=== PATIENT | female | born 1975 | race African-American/Black ===

== ENCOUNTER 2020-06-29 15:09 | Emergency (ER) | payer MEDICARE ==
[~2020-06-29] VITALS: Ht 152.4 cm; Wt 75.9 kg
[2020-06-29 15:15] VITALS: BP 146/95; TEMP 97.8
[2020-06-29] MEDS ORDERED: CRESTOR20 MG PO (15:29)
[2020-06-29] MEDS ORDERED: GLUCOPHAGE500 MG/TAB PO (15:29)
[2020-06-29] MEDS ORDERED: COZAAR100 MG PO (15:30)
[2020-06-29] MEDS ORDERED: AMITRIPTYLINE H10 M1 PO (15:30)
[2020-06-29 16:01] LABS: BASO % 0.6 % (0.0-2.0); EOS # 0.1 (0.0-0.7); EOS % 2.3 % (0-4.0); GRAN # 2.9 (1.4-6.5); GRAN % 54.8 % (42.2-75.2); HEMATOCRIT 40.8 % (37.0-47.0); HEMOGLOBIN 13.3 g/dl (12.5-16.0); LYMPH # 1.7 (1.2-3.4); LYMPH % 32.9 % (20.0-51.0); MEAN CELL VOLUME 87 fl (80.0-100.0); MEAN CORPUSCULAR HEMOGLOBIN 28 pg (27.0-31.0); MEAN CORPUSCULAR HGB CONC 33 g/dl (33.0-37.0); MEAN PLATELET VOLUME 9.6 fl (7.4-10.4); MONO # 0.5 (0.1-0.6); PLATELET COUNT 264 K/mm3 (130-400); REDCELL DISTRIBUTION WIDTH-CV 13.2 % (11.5-14.5)
[2020-06-29 16:05] LABS: ALANINE AMINOTRANSFERASE 76 U/L (4-34); ALBUMIN 4.6 gm/dL (3.5-5.0); ALKALINE PHOSPHATASE 60 U/L (50-136); ANION GAP 9 mmol/L (7-16); AST,SGOT 42 U/L (15-37); BILIRUBIN,TOTAL 0.5 mg/dL (0.0-1.0); BLOOD UREA NITROGEN 10 mg/dL (7-17); CALCIUM 9.5 mg/dL (8.4-10.2); CARBON DIOXIDE 27 mmol/L (22-30); CHLORIDE 103 mmol/L (98-107); CREATININE, serum 0.86 (0.52-1.25); GLUCOSE 115 mg/dL (74-106); POTASSIUM 3.9 mmol/L (3.4-5.0); SODIUM 139 mmol/L (137-145); TOTAL PROTEIN 7.9 gm/dL (6.4-8.2)
[2020-06-29 16:24] LABS: C-REACTIVE PROTEIN < 0.5 mg/dL (0.0-0.9)
[2020-06-29] MEDS ORDERED: NORCO 325 MG-51 TAB PO (16:36)
[2020-06-29 16:45] VITALS: PULSE 95
== END 2020-06-29 16:45 | disposition home or self-care (01) ==
LOC: COL.ER 15:09
PROVIDERS: Emergency Medicine
DX: M54.31 Sciatica, right side (principal); E11.9 Type 2 diabetes mellitus without complications; I10 Essential (primary) hypertension; E78.00 Pure hypercholesterolemia, unspecified; Z79.84 Long term (current) use of oral hypoglycemic drugs; Z87.891 Personal history of nicotine dependence; Z88.6 Allergy status to analgesic agent
CPT/HCPCS: J1885

== ENCOUNTER 2020-08-29 09:26 | Emergency (ER) | payer MEDICARE, MEDICAID ==
[~2020-08-29] VITALS: Ht 152.4 cm; Wt 77.3 kg
[~2020-08-29 09:26] MED LIST: AMITRIPTYLINE H10 M1 PO; COZAAR100 MG PO; CRESTOR20 MG PO; GLUCOPHAGE500 MG/TAB PO; NORCO 325 MG-51 TAB PO
[2020-08-29 09:31] VITALS: TEMP 97.7
[2020-08-29 09:53] LABS: COLLECTION METHOD CLEAN CATCH
[2020-08-29 10:04] LABS: MUCOUS Present /lpf; PH 5 (5-8); URINE APPEARANCE Cloudy; URINE BACTERIA None Seen /hpf; URINE BILIRUBIN Negative (NEGATIVE); URINE BLOOD 1+ (NEGATIVE); URINE COLOR Yellow; URINE GLUCOSE Negative (NEGATIVE); URINE KETONE Negative (NEGATIVE); URINE LEUKOCYTE ESTERASE 1+ (NEGATIVE); URINE NITRATE Negative (NEGATIVE); URINE PROTEIN(semi-quant) Negative (NEGATIVE); URINE RBC >50 /hpf; URINE UROBILINOGEN Negative (NEGATIVE)
[2020-08-29] MEDS ORDERED: OMNICEF 300MG300 MG PO (11:20)
[2020-08-29 11:29] VITALS: BP 134/92; PULSE 78
== END 2020-08-29 11:29 | disposition home or self-care (01) ==
LOC: COL.ER 09:26
PROVIDERS: Emergency Medicine
DX: R30.0 Dysuria (principal); L29.8 Other pruritus; Z32.02 Encounter for pregnancy test, result negative; Z88.5 Allergy status to narcotic agent; Z79.84 Long term (current) use of oral hypoglycemic drugs

== ENCOUNTER 2020-10-11 08:50 | Emergency (ER) | payer MEDICARE, MEDICAID ==
[~2020-10-11] VITALS: Ht 165.1 cm; Wt 76.8 kg
[~2020-10-11 08:50] MED LIST changes: +OMNICEF 300MG300 MG PO
[2020-10-11 08:56] VITALS: TEMP 97.7
[2020-10-11 09:10] LABS: COLLECTION METHOD CLEAN CATCH
[2020-10-11 09:19] LABS: MUCOUS Present /lpf; PH 5 (5-8); SQUAMOUS EPITHELIAL 20-50 /hpf; URINE APPEARANCE Cloudy; URINE BACTERIA None Seen /hpf; URINE BILIRUBIN Negative (NEGATIVE); URINE BLOOD 2+ (NEGATIVE); URINE COLOR Yellow; URINE GLUCOSE Negative (NEGATIVE); URINE KETONE Negative (NEGATIVE); URINE LEUKOCYTE ESTERASE Trace (NEGATIVE); URINE NITRATE Negative (NEGATIVE); URINE PROTEIN(semi-quant) Negative (NEGATIVE); URINE UROBILINOGEN Negative (NEGATIVE)
[2020-10-11] MEDS ORDERED: LIDODERM 5% PATC1 EA TP (09:38)
[2020-10-11 09:50] VITALS: BP 148/98; PULSE 94
== END 2020-10-11 10:00 | disposition home or self-care (01) ==
LOC: COL.ER 08:50
PROVIDERS: Emergency Medicine
DX: M54.5 Low back pain (principal); Z87.891 Personal history of nicotine dependence; Z32.02 Encounter for pregnancy test, result negative; Z88.5 Allergy status to narcotic agent; Z79.84 Long term (current) use of oral hypoglycemic drugs

== ENCOUNTER 2020-11-18 12:03 | Emergency (ER) | payer MEDICARE, MEDICAID ==
[~2020-11-18] VITALS: Ht 152.4 cm; Wt 79.1 kg
[~2020-11-18 12:03] MED LIST changes: +LIDODERM 5% PATC1 EA TP
[2020-11-18 12:16] VITALS: TEMP 98.4
[2020-11-18 12:45] LABS: COLLECTION METHOD CLEAN CATCH
[2020-11-18] MEDS ORDERED: LIDODERM 5% PATC1 EA TP (12:53)
[2020-11-18] MEDS ORDERED: FLEXERIL5 MG PO (12:54)
[2020-11-18 12:57] LABS: MUCOUS Present /lpf; PH 6 (5-8); URINE APPEARANCE Hazy; URINE BACTERIA Rare /hpf; URINE BILIRUBIN Negative (NEGATIVE); URINE BLOOD Negative (NEGATIVE); URINE COLOR Yellow; URINE GLUCOSE Negative (NEGATIVE); URINE KETONE Negative (NEGATIVE); URINE LEUKOCYTE ESTERASE Negative (NEGATIVE); URINE NITRATE Negative (NEGATIVE); URINE PROTEIN(semi-quant) Negative (NEGATIVE); URINE RBC 0-2 /hpf; URINE UROBILINOGEN Negative (NEGATIVE)
[2020-11-18 13:04] VITALS: BP 137/96; PULSE 78
== END 2020-11-18 13:05 | disposition home or self-care (01) ==
LOC: COL.ER 12:03
PROVIDERS: Physician Assistant
DX: M54.5 Low back pain (principal); G89.29 Other chronic pain; E11.9 Type 2 diabetes mellitus without complications; I10 Essential (primary) hypertension; E78.5 Hyperlipidemia, unspecified; Z32.02 Encounter for pregnancy test, result negative; Z87.891 Personal history of nicotine dependence; Z88.5 Allergy status to narcotic agent; Z79.84 Long term (current) use of oral hypoglycemic drugs

== ENCOUNTER → 2020-11-25 | Outpatient (CLI) | payer MEDICARE, MEDICAID ==
[~2020-11-25] MED LIST changes: +FLEXERIL5 MG PO
== END ==
LOC: COL.RAD 08:00
DX: K80.20 Calculus of gallbladder without cholecystitis without obstruction (principal); K76.0 Fatty (change of) liver, not elsewhere classified

== ENCOUNTER → 2021-01-21 | Outpatient (CLI) | payer MEDICARE, MEDICAID ==
[2021-01-21 11:42] LABS: BASO # 0.1 (0.0-0.2); BASO % 0.8 % (0.0-2.0); EOS # 0.1 (0.0-0.7); EOS % 1.8 % (0-4.0); GRAN # 3.5 (1.4-6.5); GRAN % 59.2 % (42.2-75.2); HEMATOCRIT 39.8 % (37.0-47.0); HEMOGLOBIN 12.7 g/dl (12.5-16.0); LYMPH # 1.7 (1.2-3.4); LYMPH % 28.3 % (20.0-51.0); MEAN CELL VOLUME 86 fl (80.0-100.0); MEAN CORPUSCULAR HEMOGLOBIN 28 pg (27.0-31.0); MEAN CORPUSCULAR HGB CONC 32 g/dl (33.0-37.0); MEAN PLATELET VOLUME 9.7 fl (7.4-10.4); MONO # 0.6 (0.1-0.6); MONO % 9.4 % (1.7-9.3); PLATELET COUNT 222 K/mm3 (130-400); RED BLOOD COUNT 4.61 M/mm3 (4.10-5.30); REDCELL DISTRIBUTION WIDTH-CV 14.6 % (11.5-14.5)
[2021-01-21 12:08] LABS: ALBUMIN 4.4 gm/dL (3.5-5.0); BILIRUBIN,TOTAL 0.2 mg/dL (0.0-1.0); CALCIUM 9.1 mg/dL (8.4-10.2); CHOLESTEROL RISK RATIO 2.6; CREATININE, serum 0.74 (0.52-1.25); POTASSIUM 4.2 mmol/L (3.4-5.0); TOTAL PROTEIN 8.1 gm/dL (6.4-8.2)
[2021-01-21 12:51] LABS: TSH w REFLEX 1.05 uIU/mL (0.465-4.680)
[2021-01-21 22:27] LABS: HEPATITIS B SURFACE ANTIBODY <2.0 (()); HEPATITIS B SURFACE ANTIGEN Negative (Negative); HEPATITIS C VIRUS ANTIBODY Negative (Negative)
== END ==
LOC: COL.LAB 10:56
PROVIDERS: Registered Nurse
DX: Z13.9 Encounter for screening, unspecified (principal); E11.69 Type 2 diabetes mellitus with other specified complication; Z79.899 Other long term (current) drug therapy

== ENCOUNTER → 2021-04-07 | Outpatient (CLI) | payer MEDICARE, MEDICAID ==
[2021-04-07 15:17] LABS: BASO % 0.7 % (0.0-2.0); EOS # 0.1 (0.0-0.7); EOS % 1.8 % (0-4.0); GRAN # 3.5 (1.4-6.5); GRAN % 64.4 % (42.2-75.2); HEMATOCRIT 40.7 % (37.0-47.0); HEMOGLOBIN 12.7 g/dl (12.5-16.0); LYMPH # 1.4 (1.2-3.4); LYMPH % 25.7 % (20.0-51.0); MEAN CELL VOLUME 86 fl (80.0-100.0); MEAN CORPUSCULAR HEMOGLOBIN 27 pg (27.0-31.0); MEAN CORPUSCULAR HGB CONC 31 g/dl (33.0-37.0); MEAN PLATELET VOLUME 9.5 fl (7.4-10.4); MONO # 0.4 (0.1-0.6); MONO % 7.2 % (1.7-9.3); PLATELET COUNT 311 K/mm3 (130-400); RED BLOOD COUNT 4.76 M/mm3 (4.10-5.30); REDCELL DISTRIBUTION WIDTH-CV 14.6 % (11.5-14.5)
[2021-04-07 15:30] LABS: ALBUMIN 4.6 gm/dL (3.5-5.0); BILIRUBIN,TOTAL 0.3 mg/dL (0.0-1.0); CALCIUM 9.9 mg/dL (8.4-10.2); CREATININE, serum 0.74 (0.52-1.25); POTASSIUM 4.1 mmol/L (3.4-5.0)
[2021-04-07 15:31] LABS: INR 1.1 (0.8-3.0); PROTHROMBIN TIME 11.9 SECONDS (9.7-12.8)
[2021-04-07 21:43] LABS: HEPATITIS B SURFACE ANTIBODY <2.0 (()); HEPATITIS B SURFACE ANTIGEN Negative (Negative); HEPATITIS C VIRUS ANTIBODY Negative (Negative)
[2021-04-10 14:49] LABS: ANTISMOOTH MUSCLE ANTIBODY Negative (Negative)
== END ==
LOC: COL.LAB 14:11
PROVIDERS: Physician Assistant
DX: E13.9 Other specified diabetes mellitus without complications (principal); K76.0 Fatty (change of) liver, not elsewhere classified
CPT/HCPCS: 87522

== ENCOUNTER 2021-04-28 02:52 | Emergency (ER) | payer MEDICARE, MEDICAID ==
[~2021-04-28] VITALS: Ht 152.4 cm; Wt 80.9 kg
[2021-04-28 03:00] VITALS: TEMP 97.2
[2021-04-28 03:54] VITALS: BP 124/88; PULSE 82
== END 2021-04-28 03:54 | disposition home or self-care (01) ==
LOC: COL.ER 02:52
DX: S02.5XXA Fracture of tooth (traumatic), initial encounter for closed fracture (principal); X58.XXXA Exposure to other specified factors, initial encounter
CPT/HCPCS: J1885

== ENCOUNTER → 2021-07-28 | Outpatient (CLI) | payer MEDICARE, MEDICAID | LOC: MC.RAD 15:39 | DX: Z12.31 Encounter for screening mammogram for malignant neoplasm of breast (principal) ==

== ENCOUNTER 2021-08-28 10:29 | Emergency (ER) | payer MEDICARE, MEDICAID ==
[~2021-08-28] VITALS: Ht 152.4 cm; Wt 78.2 kg
[2021-08-28 11:49] LABS: BASO % 0.4 % (0.0-2.0); EOS # 0.1 K/mm3 (0.0-0.7); EOS % 1.5 % (0-4.0); GRAN # 2.5 K/mm3 (1.4-6.5); GRAN % 53.8 % (42.2-75.2); HEMATOCRIT 38.5 % (37.0-47.0); HEMOGLOBIN 12.3 g/dl (12.5-16.0); LYMPH # 1.6 K/mm3 (1.2-3.4); LYMPH % 33.7 % (20.0-51.0); MEAN CELL VOLUME 84 fl (80.0-100.0); MEAN CORPUSCULAR HEMOGLOBIN 27 pg (27.0-31.0); MEAN CORPUSCULAR HGB CONC 32 g/dl (33.0-37.0); MEAN PLATELET VOLUME 9.9 fl (7.4-10.4); MONO # 0.5 K/mm3 (0.1-0.6); MONO % 10.2 % (1.7-9.3); PLATELET COUNT 284 K/mm3 (130-400); RED BLOOD COUNT 4.57 M/mm3 (4.10-5.30); REDCELL DISTRIBUTION WIDTH-CV 14.7 % (11.5-14.5)
[2021-08-28 12:11] LABS: ALANINE AMINOTRANSFERASE 76 U/L (0-55); ALBUMIN 4.4 gm/dL (3.5-5.0); ALKALINE PHOSPHATASE 58 U/L (40-150); ANION GAP 11 mmol/L (7-16); AST,SGOT 44 U/L (5-34); BILIRUBIN,TOTAL 0.4 mg/dL (0.2-1.2); BLOOD UREA NITROGEN 7 mg/dL (7-19); CALCIUM 9.2 mg/dL (8.4-10.2); CARBON DIOXIDE 24 mmol/L (22-29); CHLORIDE 106 mmol/L (98-107); CREATININE, serum 0.95 mg/dL (0.57-1.11); GLUCOSE 107 mg/dL (70-99); SODIUM 141 mmol/L (136-145); TOTAL PROTEIN 7.6 gm/dL (6.2-8.1)
[2021-08-28 12:21] LABS: TROPONIN-I < 0.010 ng/mL (0.00-0.033)
[2021-08-28 13:11] VITALS: BP 134/98; PULSE 90
== END 2021-08-28 13:14 | disposition home or self-care (01) ==
LOC: COL.ER 10:29
PROVIDERS: Emergency Medicine
DX: R07.89 Other chest pain (principal); I10 Essential (primary) hypertension; E11.9 Type 2 diabetes mellitus without complications; F32.A Depression, unspecified; Z79.84 Long term (current) use of oral hypoglycemic drugs; Z79.899 Other long term (current) drug therapy

== ENCOUNTER 2021-10-23 14:15 | Outpatient (RCR) | payer MEDICARE, MEDICAID | END 2021-10-26 | disposition home or self-care (01) | LOC: MKS.ESL.PT | DX: M54.50 Low back pain, unspecified (principal); G89.29 Other chronic pain ==